=== PATIENT | male | born 1970 | race Caucasian/White ===

== ENCOUNTER 2017-01-01 10:12 | Day surgery (SDC) | payer MEDICAID ==
[~2017-01-01 10:12] MED LIST: CALC250 PO; FERR324T4 PO; FURO1TAB93 PO; MVI PO; SPIR100 PO; THIA100T PO
[2017-01-01 10:50] VITALS: BP 113/67; PULSE 85; RESP 18; TEMP 98.8; O2SAT 94
[2017-01-01] MEDS ORDERED: ALBUMIN HUMAN 25% 25 GM/100 ML BAGP IV ONE (12:00)
[2017-01-01 12:45] VITALS: BP 131/70; PULSE 74; RESP 18; TEMP 98.4; O2SAT 99
[2017-01-01 13:00] VITALS: BP 120/62; PULSE 72; RESP 16; O2SAT 96
--- NOTE | 2017-01-01 13:01 | RADRPT ---
EXAM DATE/TIME: 01/01/2017 10:47 [facility] COMPARISON: US GUIDED ABD PARACENTESIS, July 24, 2016, 11:37. INDICATIONS : Ascites. MEDICAL HISTORY : Gastroesophageal reflux disease. Hypertension. Cirrhosis. Ulcers. Chronic back pain. Gallbladder dis ease. Clostridium difficile. Dyspnea. SURGICAL HISTORY : Tonsillectomy. Cholecystectomy. Paracentesis. Gastric bypass. ENCOUNTER: Subsequent ACUITY: 4 - 6 months PAIN SCORE: 6/10 LOCATION: Right lower quadrant FLUID: Total volume of 14,400 cc of clear, yellow fluid was removed. Fluid was sent to lab for ordered studies. Post procedure scanning reveals no hematoma or other complication. TECHNIQUE: 1. Ultrasound guidance for abdominal paracentesis. 2. Paracentesis. The risks, benefits, and alternatives to ultrasound guided paracentesis were explained to the patient in detail including the risk of bleeding and infection. Written and verbal informed consent was obt ained. With the patient on the ultrasound table, ultrasound imaging was used to select the most appropriate approach for paracentesis. Overlying skin was prepped and draped in the usual sterile fashion and wi th a local anesthetic, a dermatotomy was made with an 11 blade scalpel. A 6 Italian [id number] ca theter was introduced into the peritoneal cavity and fluid was collected. The patient tolerated the procedure well and left the ultrasound suite in stable condition. CONCLUSION: Uncomplicated ultrasound guided paracentesis. Patient received albumin per protocol. Alexi Acevedo MD FACR on January 01, 2017 at 12:59 Board Certified Radiologist. This report was verified electronically.
[2017-01-01 13:16] VITALS: BP 126/67; PULSE 76; RESP 16; O2SAT 97
[2017-01-01 13:38] LABS: PERITONEAL HISTIOCYTES 51 %; PERITONEAL LYMPHS 25 %; PERITONEAL MESOTHELIAL 2 %; PERITONEAL MONOS 22 %; PERITONEAL POLYS(SEGS) 0 %; PERITONEAL WBC 272 /MM3 (0-10)
== END 2017-01-01 13:50 | disposition home or self-care (01) ==
LOC: HRAD 10:12 → HRIP 10:16 → HRAD 13:50
DX: R18.8 Other ascites (principal)
CPT/HCPCS: 49083; 82042; 84157; 87070; 87205; 89051; C1729; P9047

== ENCOUNTER 2017-02-17 09:57 | Day surgery (SDC) | payer MEDICAID ==
[2017-02-17 11:19] VITALS: BP 103/62; PULSE 78; RESP 20; TEMP 98.9; O2SAT 97
[2017-02-17] MEDS ORDERED: ALBUMIN HUMAN 25% 25 GM/100 ML BAGP IV ONE (12:30)
[2017-02-17 13:20] VITALS: BP 132/69; PULSE 70; RESP 16; TEMP 97.8; O2SAT 99
[2017-02-17 13:35] VITALS: BP 138/67; PULSE 70; RESP 16; O2SAT 99
[2017-02-17 13:50] VITALS: BP 142/67; PULSE 68; RESP 16; O2SAT 99
[2017-02-17 14:56] LABS: PERITONEAL WBC 771 /MM3 (0-10)
[2017-02-17 14:57] LABS: PERITONEAL HISTIOCYTES 43 %; PERITONEAL LYMPHS 35 %; PERITONEAL MONOS 10 %; PERITONEAL POLYS(SEGS) 0 %
[2017-02-17 14:58] LABS: PERITONEAL MESOTHELIAL 4 %
[2017-02-17] MEDS ORDERED: ALBUMIN HUMAN 25% 50GM-W/12.5GM FOR 62.5GM IV ONE (15:00)
[2017-02-17] MEDS ORDERED: ALBUMIN HUMAN 25% 12.5GM-W/50GM FOR 62.5GM IV ONE (15:00)
--- NOTE | 2017-02-17 17:42 | RADRPT ---
EXAM DATE/TIME: 02/17/2017 10:31 [facility] COMPARISON: US GUIDED ABD PARACENTESIS, January 01, 2017, 10:47. INDICATIONS : Ascites. MEDICAL HISTORY : Ulcers. Liver disease. Anemia. Cirrhosis. C-diff. SURGICAL HISTORY : Cholecystectomy Tonsillectomy. Gastric bypass. ENCOUNTER: Subsequent ACUITY: 1 month PAIN SCORE: 0/10 LOCATION: Right lower quadrant [place] [address] cc of clear, yellow fluid was removed. Fluid was discarded. Paracentesis was therapeutic only. Post procedure scanning reveals no hematoma or other complication. TECHNIQUE: 1. Ultrasound guidance for abdominal paracentesis. 2. Paracentesis. The risks, benefits, and alternatives to ultrasound guided paracentesis were explained to the patient in detail including the risk of bleeding and infection. Written and verbal informed consent was obt ained. With the patient on the ultrasound table, ultrasound imaging was used to select the most appropriate approach for paracentesis. Overlying skin was prepped and draped in the usual sterile fashion and wi th a local anesthetic, a dermatotomy was made with an 11 blade scalpel. A 6 [place] Rkw-H-edfeekme ca theter was introduced into the peritoneal cavity and fluid was collected. The patient tolerated the procedure well and left the ultrasound suite in stable condition. CONCLUSION: Uncomplicated ultrasound guided paracentesis. Patient received albumin per protocol. Alexi Acevedo MD FACR on February 17, 2017 at 17:40 Board Certified Radiologist. This report was verified electronically.
== END 2017-02-17 14:45 | disposition home or self-care (01) ==
LOC: HRAD 09:57 → HRIP 09:59 → HRAD 14:45
PROVIDERS: ATTEND Radiology Body Imaging
DX: R18.8 Other ascites (principal)
CPT/HCPCS: 49083; 82042; 84157; 87070; 87205; 89051; 96365; C1729

== ENCOUNTER 2017-08-20 10:20 | Day surgery (SDC) | payer MEDICAID ==
[2017-08-20 11:06] VITALS: BP 128/74; PULSE 70; RESP 20; TEMP 98.7; O2SAT 95
[2017-08-20] MEDS ORDERED: LIDOCAINE HCL 1% 20 ML VIAL ONE (11:37)
[2017-08-20 12:05] VITALS: BP 122/68; PULSE 66; RESP 20; TEMP 98.4; O2SAT 97
[2017-08-20 12:20] VITALS: BP 123/60; PULSE 66; RESP 18; O2SAT 99
--- NOTE | 2017-08-20 16:12 | RADRPT ---
EXAM DATE/TIME: 08/20/2017 10:37 [facility] COMPARISON: No previous studies available for comparison. INDICATIONS : Ascites. MEDICAL HISTORY : Ulcers. Liver disease. Anemia. Cirrhosis. C-diff. SURGICAL HISTORY : Tonsillectomy. Gastric bypass. Cholecystectomy. ENCOUNTER: [facility] ACUITY: 1 day PAIN SCORE: 0/10 LOCATION: Right lower quadrant FLUID: Total volume of 4300 cc of clear, yellow fluid was removed. Fluid was discarded. Paracentesis was therapeutic only. Post procedure scanning reveals no hematoma or other complication. TECHNIQUE: 1. Ultrasound guidance for abdominal paracentesis. 2. Paracentesis. The risks, benefits, and alternatives to ultrasound guided paracentesis were explained to the patient in detail including the risk of bleeding and infection. Written and verbal informed consent was obt ained. With the patient on the ultrasound table, ultrasound imaging was used to select the most appropriate approach for paracentesis. Overlying skin was prepped and draped in the usual sterile fashion and wi th a local anesthetic, a dermatotomy was made with an 11 blade scalpel. A 6 German Dth-[id number]-chzwhxwf ca theter was introduced into the peritoneal cavity and fluid was collected. The patient tolerated the procedure well and left the ultrasound suite in stable condition. CONCLUSION: Uncomplicated ultrasound guided paracentesis. Jamal Jett MD on August 20, 2017 at 16:11 Board Certified Radiologist. This report was verified electronically.
== END 2017-08-20 12:27 | disposition home or self-care (01) ==
LOC: HRAD 10:20 → HRIP 10:22 → HRAD 12:27
DX: R18.8 Other ascites (principal); Z90.49 Acquired absence of other specified parts of digestive tract; Z98.84 Bariatric surgery status
CPT/HCPCS: 49083; C1729